=== PATIENT | male | born 1965 | race Hispanic/Latino ===

== ENCOUNTER 2019-04-21 09:11 | Emergency (ER) | payer BC | END 2019-04-21 10:10 | disposition home or self-care (01) | LOC: EDH 09:11 | DX: S61.217A Laceration without foreign body of left little finger without damage to nail, initial encounter (principal); I15.8 Other secondary hypertension; Z90.49 Acquired absence of other specified parts of digestive tract; Z72.0 Tobacco use; W26.0XXA Contact with knife, initial encounter; Y99.0 Civilian activity done for income or pay; Y93.89 Activity, other specified; Y99.8 Other external cause status | CPT/HCPCS: 12041; 73140 ==

== ENCOUNTER 2023-07-30 10:08 | Emergency (ER) | payer BC ==
[~2023-07-30] VITALS: Ht 175.3 cm; Wt 148.3 kg
[2023-07-30 10:30] VITALS: BP 161/102; PULSE 69; RESP 18
[2023-07-30] MEDS ORDERED: MELO5CAP3 PO (10:43)
[2023-07-30] MEDS: KETOROLAC 15MG/ML VIAL (15MG/ML) IM STA (11:15)
== END 2023-07-30 11:25 | disposition home or self-care (01) ==
LOC: EDH 10:08
DX: S83.92XA Sprain of unspecified site of left knee, initial encounter (principal); X58.XXXA Exposure to other specified factors, initial encounter; Y93.89 Activity, other specified; Y92.89 Other specified places as the place of occurrence of the external cause; Y99.8 Other external cause status
CPT/HCPCS: 99284; 96372; J1885